=== PATIENT | female | born 1980 | race Caucasian/White ===

== ENCOUNTER 2016-10-12 13:12 | Emergency (ER) | payer MEDICARE | END 2016-10-12 15:50 | disposition home or self-care (01) | LOC: D.ER 13:12 | DX: S93.402A Sprain of unspecified ligament of left ankle, initial encounter (principal); Y93.A1 Activity, exercise machines primarily for cardiorespiratory conditioning; Y93.89 Activity, other specified; Y92.39 Other specified sports and athletic area as the place of occurrence of the external cause; F31.9 Bipolar disorder, unspecified ==

== ENCOUNTER → 2016-10-16 11:49 | Outpatient (CLI) | payer MEDICARE ==
[2016-10-16 12:35] LABS: BASOPHILS 0.3 % (0.0-2.0); EOSINOPHILS 5.7 % (0-7); HEMATOCRIT 37.9 % (36.0-48.0); HEMOGLOBIN 12.4 g/dL (12-16); IMMATURE GRANULOCYTES 0.7 % (0-5); LYMPHOCYTES 23.3 % (15-50); MCH 34.9 pg (26.0-34.0); MCHC 32.7 g/dL (31.0-37.0); MCV 106.8 fL (80.0-100.0); MEAN PLATELET VOLUME 10.7 fL (7.4-10.4); MONOCYTES 5.9 % (2-11); NEUTROPHILS 64.1 % (40-80); PLATELET COUNT 340 10x3/uL (130-400); RBC 3.55 10x6/uL (4.00-5.40); RDW 13.3 % (11.5-14.5); WBC 11.3 10x3/uL (4.8-10.8)
[2016-10-16 12:43] LABS: HCG SERUM NEGATIVE (NEGATIVE)
[2016-10-16 13:01] LABS: ALBUMIN 3.8 g/dL (3.4-5.0); ALKALINE PHOSPHATASE 49 U/L (46-116); ALT (SGPT) 57 U/L (10-68); BILIRUBIN - DIRECT 0.09 mg/dL (0.00-0.30); BILIRUBIN - INDIRECT 0.37 mg/dL (0.00-1.00); BILIRUBIN - TOTAL 0.46 mg/dL (0.2-1.3); CALC OSMOLALITY 277 mosm/kg (275-300); CALCIUM 9.6 mg/dL (8.5-10.1); CARBON DIOXIDE 27.9 mmol/L (21.0-32.0); CHLORIDE - SERUM 105 mmol/L (98-107); CREATININE - SERUM 0.7 mg/dL (0.6-1.3); GLUCOSE 89 mg/dL (74-106); POTASSIUM - SERUM 4.4 mmol/L (3.5-5.1); PROTEIN - SERUM 6.8 g/dL (6.4-8.2); SODIUM 141 mmol/L (136-145); T4 THYROXINE 6.1 ug/dL (4.7-13.3); THYROID STIMULATING HORMONE 3.06 uIU/mL (0.36-3.74); UREA NITROGEN 7 mg/dL (7-18); eGFR NON AFRICAN AMERICAN > 90 mL/min (90-120)
== END | disposition home or self-care (01) ==
LOC: D.LAB 11:49
PROVIDERS: Psychiatry & Neurology Psychiatry
DX: F31.9 Bipolar disorder, unspecified (principal)

== ENCOUNTER 2016-10-17 16:16 | Emergency (ER) | payer MEDICARE | END 2016-10-17 18:30 | disposition home or self-care (01) | LOC: D.ER 16:16 | DX: S93.402A Sprain of unspecified ligament of left ankle, initial encounter (principal); X58.XXXA Exposure to other specified factors, initial encounter; Y93.89 Activity, other specified; Y92.89 Other specified places as the place of occurrence of the external cause; F31.9 Bipolar disorder, unspecified; F17.200 Nicotine dependence, unspecified, uncomplicated ==

== ENCOUNTER → 2016-11-17 12:47 | Outpatient (CLI) | payer MEDICARE | END | disposition home or self-care (01) | LOC: D.LAB 12:47 | DX: F31.71 Bipolar disorder, in partial remission, most recent episode hypomanic (principal) ==

== ENCOUNTER 2017-04-03 13:23 | Emergency (ER) | payer MEDICARE | END 2017-04-03 15:18 | disposition home or self-care (01) | LOC: D.ER 13:23 | DX: K04.7 Periapical abscess without sinus (principal); K08.89 Other specified disorders of teeth and supporting structures; F31.89 Other bipolar disorder; F17.200 Nicotine dependence, unspecified, uncomplicated ==

== ENCOUNTER 2017-05-16 15:16 | Emergency (ER) | payer MEDICARE | END 2017-05-16 16:20 | disposition home or self-care (01) | LOC: D.ER 15:16 | DX: S50.12XA Contusion of left forearm, initial encounter (principal); X58.XXXA Exposure to other specified factors, initial encounter; Y93.89 Activity, other specified; Y92.89 Other specified places as the place of occurrence of the external cause; R20.0 Anesthesia of skin ==

== ENCOUNTER 2017-06-13 16:56 | Emergency (ER) | payer MEDICARE | END 2017-06-13 19:55 | disposition home or self-care (01) | LOC: D.ER 16:56 | DX: K02.9 Dental caries, unspecified (principal); K08.89 Other specified disorders of teeth and supporting structures ==

== ENCOUNTER 2017-06-23 18:36 | Emergency (ER) | payer MEDICARE ==
[2017-06-23 19:01] LABS: BASOPHILS 0.2 % (0-2); EOSINOPHILS 2.3 % (0-7); HEMATOCRIT 38.8 % (36.0-48.0); HEMOGLOBIN 13.3 g/dL (12-16); IMMATURE GRANULOCYTES 0.4 % (0-5); LYMPHOCYTES 28.3 % (15-50); MCHC 34.3 g/dL (31.0-37.0); MCV 102.1 fL (80.0-100.0); MEAN PLATELET VOLUME 10.9 fL (7.4-10.4); MONOCYTES 5.8 % (2-11); PLATELET COUNT 334 10x3/uL (130-400); WBC 15.6 10x3/uL (4.8-10.8)
[2017-06-23 19:24] LABS: HCG SERUM NEGATIVE (NEGATIVE)
[2017-06-23 20:14] LABS: APPEARANCE CLEAR (CLEAR); BILIRUBIN NEGATIVE (NEGATIVE); COLOR YELLOW (YELLOW); GLUCOSE NEGATIVE (NEGATIVE); KETONE NEGATIVE (NEGATIVE); LEUKOCYTE ESTERASE NEGATIVE (NEGATIVE); NITRITE NEGATIVE (NEGATIVE); PROTEIN NEGATIVE (NEGATIVE); UROBILINOGEN NORMAL (NORMAL)
[2017-06-23 21:00] LABS: ALBUMIN 3.6 g/dL (3.4-5.0); ALKALINE PHOSPHATASE 72 U/L (46-116); ALT (SGPT) 59 U/L (10-68); AMYLASE - SERUM 45 U/L (25-115); BILIRUBIN - TOTAL 0.42 mg/dL (0.2-1.3); CALC OSMOLALITY 275 mosm/kg (275-300); CALCIUM 8.9 mg/dL (8.5-10.1); CARBON DIOXIDE 24.1 mmol/L (21.0-32.0); CHLORIDE - SERUM 104 mmol/L (98-107); CREATININE - SERUM 0.8 mg/dL (0.6-1.3); GLUCOSE 94 mg/dL (74-106); LIPASE 197 U/L (73-393); MAGNESIUM - SERUM 2.2 mg/dL (1.8-2.4); POTASSIUM - SERUM 3.6 mmol/L (3.5-5.1); PROTEIN - SERUM 6.9 g/dL (6.4-8.2); SODIUM 139 mmol/L (136-145); UREA NITROGEN 8 mg/dL (7-18); eGFR NON AFRICAN AMERICAN 85 mL/min (90-120)
== END 2017-06-23 21:25 | disposition home or self-care (01) ==
LOC: D.ER 18:36
PROVIDERS: Emergency Medicine
DX: R10.11 Right upper quadrant pain (principal); F17.200 Nicotine dependence, unspecified, uncomplicated

== ENCOUNTER 2017-07-11 11:17 | Emergency (ER) | payer MEDICARE ==
[2017-11-14 12:23] VITALS: BMI 36.9
== END 2017-07-11 13:41 | disposition home or self-care (01) ==
LOC: D.ER 11:17
DX: J20.9 Acute bronchitis, unspecified (principal)

== ENCOUNTER 2017-09-27 14:37 | Emergency (ER) | payer MEDICARE ==
[2017-11-14 12:23] VITALS: BMI 36.9
== END 2017-09-27 16:13 | disposition home or self-care (01) ==
LOC: D.ER 14:37
DX: J20.9 Acute bronchitis, unspecified (principal); F17.200 Nicotine dependence, unspecified, uncomplicated

== ENCOUNTER 2017-11-02 17:51 | Emergency (ER) | payer MEDICARE ==
[2017-11-02 18:29] LABS: APPEARANCE CLEAR (CLEAR); BILIRUBIN NEGATIVE (NEGATIVE); COLOR YELLOW (YELLOW); GLUCOSE NEGATIVE (NEGATIVE); KETONE NEGATIVE (NEGATIVE); NITRITE NEGATIVE (NEGATIVE); PROTEIN NEGATIVE (NEGATIVE); UROBILINOGEN NORMAL (NORMAL)
[2017-11-02 18:44] LABS: BASOPHILS 0.1 % (0-2); EOSINOPHILS 1.4 % (0-7); HEMOGLOBIN 12.4 g/dL (12-16); IMMATURE GRANULOCYTES 0.3 % (0-5); LYMPHOCYTES 24.9 % (15-50); MCH 35.6 pg (26.0-34.0); MCHC 33.5 g/dL (31.0-37.0); MCV 106.3 fL (80.0-100.0); MEAN PLATELET VOLUME 10.9 fL (7.4-10.4); MONOCYTES 6.5 % (2-11); NEUTROPHILS 66.8 % (40-80); PLATELET COUNT 295 10x3/uL (130-400); RBC 3.48 10x6/uL (4.00-5.40); RDW 14.2 % (11.5-14.5); WBC 14.7 10x3/uL (4.8-10.8)
[2017-11-02 19:05] LABS: ALBUMIN 3.4 g/dL (3.4-5.0); ANION GAP 13.4 mmol/L (8-16); BILIRUBIN - TOTAL 0.2 mg/dL (0.2-1.3); CARBON DIOXIDE 24.2 mmol/L (21.0-32.0); CREATININE - SERUM 0.9 mg/dL (0.6-1.3); POTASSIUM - SERUM 3.6 mmol/L (3.5-5.1); PROTEIN - SERUM 6.6 g/dL (6.4-8.2)
== END 2017-11-02 20:45 | disposition left against medical advice (07) ==
LOC: D.ER 17:51
PROVIDERS: Emergency Medicine
DX: R10.84 Generalized abdominal pain (principal)

== ENCOUNTER 2017-11-05 07:21 | Emergency (ER) | payer MEDICARE | END 2017-11-05 09:00 | disposition home or self-care (01) | LOC: D.ER 07:21 | DX: H92.02 Otalgia, left ear (principal); H66.92 Otitis media, unspecified, left ear ==

== ENCOUNTER 2017-11-07 10:48 | Emergency (ER) | payer MEDICARE ==
[2017-11-07 11:43] LABS: BASOPHILS 0.2 % (0-2); EOSINOPHILS 0.9 % (0-7); HEMATOCRIT 36.4 % (36.0-48.0); IMMATURE GRANULOCYTES 0.9 % (0-5); LYMPHOCYTES 14.8 % (15-50); MCH 35.3 pg (26.0-34.0); MCV 107.1 fL (80.0-100.0); MEAN PLATELET VOLUME 11.1 fL (7.4-10.4); MONOCYTES 11.1 % (2-11); NEUTROPHILS 72.1 % (40-80); PLATELET COUNT 273 10x3/uL (130-400); RDW 14.4 % (11.5-14.5); WBC 12.6 10x3/uL (4.8-10.8)
[2017-11-07 11:58] LABS: ANION GAP 16.4 mmol/L (8-16); BILIRUBIN - TOTAL 0.15 mg/dL (0.2-1.3); CALCIUM 8.4 mg/dL (8.5-10.1); CARBON DIOXIDE 21.4 mmol/L (21.0-32.0); PROTEIN - SERUM 6.2 g/dL (6.4-8.2)
[2017-11-07 12:07] LABS: POTASSIUM - SERUM 2.8 mmol/L (3.5-5.1)
== END 2017-11-07 12:40 | disposition home or self-care (01) ==
LOC: D.ER 10:48
PROVIDERS: Emergency Medicine
DX: J11.1 Influenza due to unidentified influenza virus with other respiratory manifestations (principal); F17.200 Nicotine dependence, unspecified, uncomplicated

== ENCOUNTER 2017-11-09 11:13 | Emergency (ER) | payer MEDICARE | END 2017-11-09 13:16 | disposition home or self-care (01) | LOC: D.ER 11:13 | DX: J45.901 Unspecified asthma with (acute) exacerbation (principal); J11.1 Influenza due to unidentified influenza virus with other respiratory manifestations; F17.200 Nicotine dependence, unspecified, uncomplicated ==

== ENCOUNTER 2017-11-14 07:39 | Inpatient (IN) | payer MEDICARE ==
[~2017-11-14] VITALS: Ht 154.9 cm; Wt 118.2 kg
--- NOTE | ~2017-11-14 | CN ---
PATIENT NAME:RUBEN MARINA MEDICAL RECORD: [id number] : 78 LOCATION:D.MS [address] ADMIT DATE: 11/14/17 ACCOUNT: [id number] CONSULTING PHYSICIAN: JORDYN ACUÑA MD REFERRING PHYSICIAN: CAROLINE SINGER MD DATE OF CONSULTATION: 11/14/2017 CONSULT REQUESTING PHYSICIAN: Caroline Singer MD REASON FOR CONSULTATION: Acute exacerbation of COPD, hypoxia. HISTORY OF PRESENT ILLNESS: Ms. Marina is a 37-year-old female who had flu more 10 days ago. She was treated with Tamiflu. The patient claimed that she had flu twice this year. Now, she has coughing, wheezing, and shortness of breath with mild exertion. The patient came into the ER. The CT scan showed pneumonitis. REVIEW OF THE SYSTEMS: Mainly in the history of present illness. PAST MEDICAL HISTORY: 1. Pneumonia. 2. Gastroesophageal reflux disease. 3. Anxiety and bipolar disorder. PAST SURGICAL HISTORY: Hand and ankle surgery. ALLERGIES: SHE IS ALLERGIC TO PENICILLIN AND CHANTIX. PRESENT MEDICATIONS: She is on Rocephin IV, Zithromax IV. Her other medications are reviewed. PERSONAL AND SOCIAL HISTORY: The patient is still a current everyday smoker. She is nondrinker. FAMILY HISTORY: Significant for diabetes. PHYSICAL EXAMINATION: GENERAL: Now, the patient is lying comfortably in bed. She is not in acute distress. VITAL SIGNS: The blood pressure is 120/72, pulse is 119, temperature is 97.9, SpO2 is 95% on 2 liters nasal cannula. HEENT: Conjunctivae are pink. Sclerae not icteric. NECK: Supple. No JVD. CHEST: There is prolonged expiration with wheezing. HEART: Rhythm regular. Normal sound. No murmur. ABDOMEN: Soft. Bowel sounds present. No hepatosplenomegaly. RECTAL: Deferred. EXTREMITIES: No cyanosis. No clubbing. No pedal edema. SKIN: The skin is warm. Normal turgor. CENTRAL NERVOUS SYSTEM: The patient is awake and alert. There are no obvious cranial nerve abnormalities. The gait was not tested. IMAGING: CT scan of the chest; there is increased interstitial marking. No PE. CBC; the WBC is 15.2, hemoglobin 12.8, hematocrit 38.8, platelet count 362. CONSULT REPORT [id number] RUBEN MARINA D Chemistry; sodium 140, potassium 3.4, BUN is 16, creatinine 0.8. ABG; the pH is 7.45, pCO2 is 39.8, pO2 is 71, bicarb is 27.6. IMPRESSION: 1. Acute hypoxic respiratory failure. The pO2 is 71 on ABG. 2. Acute exacerbation of COPD. 3. Bilateral pneumonitis. 4. Tobacco dependence syndrome. 5. Leukocytosis. 6. Acute cough. 7. Dyspnea on exertion. 8. Gastroesophageal reflux disease. RECOMMENDATION: 1. Supplemental oxygen. 2. Albuterol/ipratropium nebulizer, Brovana and budesonide nebulizer. 3. Methylprednisolone IV. 4. Check alpha-1 level. 5. Continue Zithromax and Rocephin IV. 6. Mucinex DM and Tessalon Perles 200 mg p.o. t.i.d. 7. Follow labs and chest radiograph in the morning. Dr. Singer, thank you for involving me in the care of Ms. Marina. TRANSINT:[id number] Voice Confirmation ID: [id number] DOCUMENT ID: [id number] JORDYN ACUÑA MD CC: CAROLINE SINGER MD [id number] DICTATION DATE: 11/14/17 1525 PLASTERER SPOT: 11/14/17 1751 ADM IN [facility] [address] [place] [address]
[2017-11-14 08:24] LABS: BASOPHILS 0.2 % (0-2); EOSINOPHILS 0.5 % (0-7); HEMATOCRIT 38.8 % (36.0-48.0); HEMOGLOBIN 12.8 g/dL (12-16); LYMPHOCYTES 32.9 % (15-50); MCH 35.5 pg (26.0-34.0); MCV 107.5 fL (80.0-100.0); MEAN PLATELET VOLUME 10.1 fL (7.4-10.4); MONOCYTES 6.4 % (2-11); RBC 3.61 10x6/uL (4.00-5.40); RDW 15.6 % (11.5-14.5); WBC 15.2 10x3/uL (4.8-10.8)
[2017-11-14 08:27] LABS: PLATELET COUNT 362 10x3/uL (130-400)
[2017-11-14 08:42] LABS: ALBUMIN 3.4 g/dL (3.4-5.0); ALKALINE PHOSPHATASE 57 U/L (46-116); ALT (SGPT) 80 U/L (10-68); CALC OSMOLALITY 278 mosm/kg (275-300); CALCIUM 8.6 mg/dL (8.5-10.1); CARBON DIOXIDE 26.7 mmol/L (21.0-32.0); CHLORIDE - SERUM 103 mmol/L (98-107); CREATININE - SERUM 0.8 mg/dL (0.6-1.3); GLUCOSE 82 mg/dL (74-106); POTASSIUM - SERUM 3.4 mmol/L (3.5-5.1); PROTEIN - SERUM 6.6 g/dL (6.4-8.2); SODIUM 140 mmol/L (136-145); UREA NITROGEN 16 mg/dL (7-18); eGFR NON AFRICAN AMERICAN 85 mL/min (90-120)
[2017-11-14 08:43] LABS: MONO NEGATIVE (NEGATIVE)
[2017-11-14] MEDS ORDERED: KLONOPIN1 MG PO (12:20)
[2017-11-14] MEDS ORDERED: LUNESTA2 M1 PO (12:21)
[2017-11-14] MEDS ORDERED: PROZAC20 MG PO (12:21)
[2017-11-14] MEDS ORDERED: LATUDA40 MG PO (12:21)
[2017-11-14 12:23] VITALS: BP 120/72; Ht 154.9 cm; Wt 118.2 kg
[2017-11-14 16:00] VITALS: BP 115/74
[2017-11-14 20:00] VITALS: BP 128/81
[2017-11-15] VITALS: BP 155/86
[2017-11-15 04:00] VITALS: BP 140/86
[2017-11-15 05:17] LABS: BASOPHILS 0.1 % (0-2); EOSINOPHILS 0 % (0-7); HEMATOCRIT 37.6 % (36.0-48.0); HEMOGLOBIN 12.1 g/dL (12-16); IMMATURE GRANULOCYTES 4.3 % (0-5); LYMPHOCYTES 8.4 % (15-50); MCH 34.8 pg (26.0-34.0); MCHC 32.2 g/dL (31.0-37.0); MEAN PLATELET VOLUME 10.4 fL (7.4-10.4); MONOCYTES 1.6 % (2-11); NEUTROPHILS 85.6 % (40-80); PLATELET COUNT 374 10x3/uL (130-400); RBC 3.48 10x6/uL (4.00-5.40); RDW 15.4 % (11.5-14.5)
[2017-11-15 05:28] LABS: WBC 19.1 10x3/uL (4.8-10.8)
[2017-11-15 05:37] LABS: ALBUMIN 3.3 g/dL (3.4-5.0); ANION GAP 12.2 mmol/L (8-16); BILIRUBIN - TOTAL 0.2 mg/dL (0.2-1.3); CALCIUM 8.6 mg/dL (8.5-10.1); CARBON DIOXIDE 27.1 mmol/L (21.0-32.0); CREATININE - SERUM 0.9 mg/dL (0.6-1.3); PROTEIN - SERUM 6.8 g/dL (6.4-8.2)
[2017-11-15 05:40] LABS: POTASSIUM - SERUM 4.3 mmol/L (3.5-5.1)
[2017-11-15 09:14] VITALS: BP 128/67
[2017-11-15 12:55] VITALS: BP 130/72
[2017-11-15 16:59] VITALS: BP 130/74
[2017-11-15 22:08] VITALS: BP 124/77
[2017-11-16 04:55] VITALS: BP 130/85
[2017-11-16 06:15] LABS: ALBUMIN 3.2 g/dL (3.4-5.0); ALKALINE PHOSPHATASE 60 U/L (46-116); ALT (SGPT) 76 U/L (10-68); CALC OSMOLALITY 280 mosm/kg (275-300); CALCIUM 8.4 mg/dL (8.5-10.1); CARBON DIOXIDE 26.8 mmol/L (21.0-32.0); CHLORIDE - SERUM 103 mmol/L (98-107); CREATININE - SERUM 0.7 mg/dL (0.6-1.3); GLUCOSE 154 mg/dL (74-106); PROTEIN - SERUM 6.8 g/dL (6.4-8.2); SODIUM 139 mmol/L (136-145); UREA NITROGEN 12 mg/dL (7-18); eGFR NON AFRICAN AMERICAN > 90 mL/min (90-120)
[2017-11-16 06:20] LABS: HEMATOCRIT 38.2 % (36.0-48.0); HEMOGLOBIN 12.2 g/dL (12-16); MCH 35.2 pg (26.0-34.0); MCHC 31.9 g/dL (31.0-37.0); MCV 110.1 fL (80.0-100.0); MEAN PLATELET VOLUME 10.7 fL (7.4-10.4); PLATELET COUNT 386 10x3/uL (130-400); RBC 3.47 10x6/uL (4.00-5.40); RDW 15.9 % (11.5-14.5); WBC 20.2 10x3/uL (4.8-10.8)
[2017-11-16 07:26] LABS: LYMPHOCYTES 10 % (15-50); MONOCYTES 5 % (2-11); NEUTROPHILS 82 % (40-80); PLATELET ESTIMATE NORMAL
[2017-11-16 07:27] LABS: ANISOCYTOSIS OCC
[2017-11-16 08:34] VITALS: BP 123/83
[2017-11-16 12:29] VITALS: BP 130/87
[2017-11-16] MEDS ORDERED: OMNICEF300 MG PO (15:15)
[2017-11-16] MEDS ORDERED: ZITHROMAX250 MG PO (15:15)
[2017-11-16] MEDS ORDERED: NICODERM C1 PATCH .1 TRANSDERM (15:16)
[2017-11-16] MEDS ORDERED: IPRAT-ALBUT 0.5-3 ML UPD (15:17)
[2017-11-16] MEDS ORDERED: PROVENTIL HFA6.7 GM INH (15:18)
[2017-11-16 15:52] VITALS: BP 129/90
[2017-11-16 19:11] LABS: EBV - EARLY ANTIGEN AB IGG 18.1 U/mL (0.0-8.9); EBV - NUCLEAR ANTIGEN AB IGG <18.0 U/mL (0.0-17.9); EBV VIRAL CAPSID AB IGM <36.0 U/mL (0.0-35.9)
== END 2017-11-16 17:42 | disposition home or self-care (01) | DRG 193 ==
LOC: D.ER 07:39 → D.MS 11:16
PROVIDERS: Emergency Medicine; Family Medicine
DX: J18.9 Pneumonia, unspecified organism (principal); J96.01 Acute respiratory failure with hypoxia; J44.0 Chronic obstructive pulmonary disease with (acute) lower respiratory infection; J44.1 Chronic obstructive pulmonary disease with (acute) exacerbation; F17.203 Nicotine dependence unspecified, with withdrawal; K21.9 Gastro-esophageal reflux disease without esophagitis; F31.9 Bipolar disorder, unspecified; F41.9 Anxiety disorder, unspecified; E87.6 Hypokalemia; G89.29 Other chronic pain; R60.9 Edema, unspecified

== ENCOUNTER 2017-11-20 11:29 | Emergency (ER) | payer MEDICARE ==
[2017-11-14 12:23] VITALS: BMI 36.9
[~2017-11-20 11:29] MED LIST: IPRAT-ALBUT 0.5-3 ML UPD; KLONOPIN1 MG PO; LATUDA40 MG PO; LUNESTA2 M1 PO; NICODERM C1 PATCH .1 TRANSDERM; OMNICEF300 MG PO; PROVENTIL HFA6.7 GM INH; PROZAC20 MG PO; ZITHROMAX250 MG PO
[2017-11-20 13:01] LABS: BASOPHILS 0.1 % (0-2); HEMATOCRIT 43.8 % (36.0-48.0); HEMOGLOBIN 14.7 g/dL (12-16); IMMATURE GRANULOCYTES 1.6 % (0-5); LYMPHOCYTES 23.8 % (15-50); MCH 35.8 pg (26.0-34.0); MCHC 33.6 g/dL (31.0-37.0); MCV 106.6 fL (80.0-100.0); MONOCYTES 7.6 % (2-11); NEUTROPHILS 65.9 % (40-80); PLATELET COUNT 403 10x3/uL (130-400); RBC 4.11 10x6/uL (4.00-5.40); RDW 15.4 % (11.5-14.5); WBC 15.3 10x3/uL (4.8-10.8)
[2017-11-20 13:07] LABS: ALBUMIN 3.6 g/dL (3.4-5.0); ANION GAP 15.7 mmol/L (8-16); BILIRUBIN - TOTAL 0.32 mg/dL (0.2-1.3); CARBON DIOXIDE 25.6 mmol/L (21.0-32.0); CREATININE - SERUM 0.9 mg/dL (0.6-1.3); POTASSIUM - SERUM 4.3 mmol/L (3.5-5.1); PROTEIN - SERUM 7.5 g/dL (6.4-8.2)
== END 2017-11-20 14:32 | disposition home or self-care (01) ==
LOC: D.ER 11:29
PROVIDERS: Emergency Medicine
DX: R06.00 Dyspnea, unspecified (principal); M94.0 Chondrocostal junction syndrome [Tietze]; F17.200 Nicotine dependence, unspecified, uncomplicated; R00.0 Tachycardia, unspecified

== ENCOUNTER 2017-11-26 19:39 | Emergency (ER) | payer MEDICARE ==
[2017-11-14 12:23] VITALS: BMI 36.9
[2017-11-26 21:57] LABS: ALBUMIN 3.6 g/dL (3.4-5.0); ANION GAP 12.9 mmol/L (8-16); BILIRUBIN - TOTAL 0.29 mg/dL (0.2-1.3); CALCIUM 9.3 mg/dL (8.5-10.1); CARBON DIOXIDE 25.4 mmol/L (21.0-32.0); CREATININE - SERUM 0.9 mg/dL (0.6-1.3); POTASSIUM - SERUM 3.3 mmol/L (3.5-5.1); PROTEIN - SERUM 7.2 g/dL (6.4-8.2)
[2017-11-26 22:02] LABS: BASOPHILS 0.3 % (0-2); EOSINOPHILS 2.3 % (0-7); HEMATOCRIT 40.3 % (36.0-48.0); HEMOGLOBIN 13.5 g/dL (12-16); IMMATURE GRANULOCYTES 0.3 % (0-5); LYMPHOCYTES 36.2 % (15-50); MCH 35.2 pg (26.0-34.0); MCHC 33.5 g/dL (31.0-37.0); MCV 105.2 fL (80.0-100.0); MEAN PLATELET VOLUME 11.1 fL (7.4-10.4); MONOCYTES 9.7 % (2-11); NEUTROPHILS 51.2 % (40-80); RBC 3.83 10x6/uL (4.00-5.40); RDW 14.6 % (11.5-14.5); WBC 10.4 10x3/uL (4.8-10.8)
[2017-11-26 22:05] LABS: PLATELET COUNT 307 10x3/uL (130-400)
== END 2017-11-27 00:30 | disposition home or self-care (01) ==
LOC: D.ER 19:39
PROVIDERS: Emergency Medicine
DX: E65 Localized adiposity (principal)

== ENCOUNTER 2017-12-05 07:49 | Observation (INO) | payer MEDICARE ==
[~2017-12-05] VITALS: Ht 154.9 cm; Wt 81.8 kg
--- NOTE | ~2017-12-05 | HP ---
PATIENT: RUBEN WHITLOCK MEDICAL RECORD: [id number] ACCOUNT: [id number] LOCATION:[address] : 79 ADMISSION DATE: 12/05/17 HISTORY AND PHYSICAL EXAMINATION HISTORY: A 37-year-old female presented to the Emergency Room with shortness of breath, diffuse pain. No known injury. PAST MEDICAL HISTORY: Significant for recurrent asthmatic bronchitis, anxiety disorder, bipolar disorder, costochondritis, depression. CURRENT MEDICATIONS: Latuda, Lunesta, Klonopin, Prozac. ALLERGIES: CHANTIX, PENICILLIN, MOBIC. SOCIAL HISTORY: Former smoker, presently on nicotine patches. Hospitalization in November for similar symptoms, diagnosed with exacerbation of asthma. Will, flu in November, has not gotten back to her baseline since. REVIEW OF SYSTEM: CONSTITUTIONAL: No known change in weight or appetite. HEENT: No cephalgia, visual changes, tinnitus, epistaxis, or dysphagia. CARDIOVASCULAR: Denies palpitations. She has sternal pain and tenderness, diffuse pain syndrome. PULMONARY: Denies hemoptysis. Admits to cough, wheeze, and shortness of breath. GI: Denies hematemesis, hematochezia, or melena. : Denies dysuria. MUSCULOSKELETAL: Polymyalgia, polyarthralgia. ENDOCRINE: Cushingoid features, has endocrinology evaluation scheduled later this month. PHYSICAL EXAMINATION: VITAL SIGNS: Temp 97.5, blood pressure is 152/98, heart rate 111, respirations 20, O2 sat is 98% on room air. GENERAL: Alert, oriented, mild distress secondary to above. HEENT: Normocephalic, atraumatic. Eyes; pupils are equal, round, and reactive to light and accommodation. Extraocular muscles intact. Conjunctivae are not injected. Ears; canals patent. TMs are intact. Nose; nares patent without drainage. Throat; no erythema, no exudate. NECK: Supple. No lymphadenopathy. HEART: Regular, tachycardic. LUNGS: Clear to auscultation bilaterally. Breathing is nonlabored. Mildly prolonged expiratory phase. ABDOMEN: Soft, nontender. Bowel sounds in all 4 quadrants. EXTREMITIES: Present times 4. No edema. She does have cushingoid-type hump on thoracic spine. EKG showed sinus tachycardia with rate of 106. No other abnormalities. Lactic acid 0.8. CBC; white count 10.5, hemoglobin 13.5, hematocrit 40, platelets 357. Chemistry shows sodium 138, potassium 3.9, chloride 105, bicarb 22, BUN 3, creatinine 0.6. T-bili 0.33, AST 26, ALT 42. Blood cultures pending. Chest x-ray; bibasilar interstitial prominence, right greater than left. Underlying evolving infiltrate cannot be excluded. HISTORY AND PHYSICAL [id number] RUBEN WHITLOCK ASSESSMENT AND PLAN: 1. Polymyalgia, polyarthralgia. Pain management. 2. Possible early pneumonia with the patient's recurrent symptoms. Afebrile. Normal white count. We will consult pulmonology. DuoNeb. Supportive care. 3. Cushingoid features. Outpatient evaluation with endocrinology. 4. Bipolar disorder, anxiety disorder. Continue home medications. TRANSINT:[id number] Voice Confirmation ID: [id number] DOCUMENT ID: [id number] DARION MCCARTY DO at 1055 CC: [id number] DICTATION DATE: 12/05/17 1522 GEOPHYSICAL MANAGER: 12/05/17 1615 ADM IN [facility] [address] [place] [address]
[2017-12-05 08:52] LABS: BASOPHILS 0.2 % (0-2); EOSINOPHILS 1.9 % (0-7); HEMOGLOBIN 13.5 g/dL (12-16); IMMATURE GRANULOCYTES 0.4 % (0-5); LYMPHOCYTES 29.9 % (15-50); MCH 35.2 pg (26.0-34.0); MCHC 33.8 g/dL (31.0-37.0); MCV 104.4 fL (80.0-100.0); MEAN PLATELET VOLUME 10.5 fL (7.4-10.4); MONOCYTES 8.4 % (2-11); NEUTROPHILS 59.2 % (40-80); PLATELET COUNT 357 10x3/uL (130-400); RBC 3.83 10x6/uL (4.00-5.40); RDW 14.4 % (11.5-14.5); WBC 10.5 10x3/uL (4.8-10.8)
[2017-12-05 09:06] LABS: ALBUMIN 3.5 g/dL (3.4-5.0); ALKALINE PHOSPHATASE 62 U/L (46-116); ALT (SGPT) 42 U/L (10-68); BILIRUBIN - TOTAL 0.33 mg/dL (0.2-1.3); CALC OSMOLALITY 271 mosm/kg (275-300); CALCIUM 9.2 mg/dL (8.5-10.1); CHLORIDE - SERUM 105 mmol/L (98-107); CREATININE - SERUM 0.6 mg/dL (0.6-1.3); GLUCOSE 88 mg/dL (74-106); POTASSIUM - SERUM 3.9 mmol/L (3.5-5.1); PROTEIN - SERUM 7.5 g/dL (6.4-8.2); SODIUM 138 mmol/L (136-145); UREA NITROGEN 3 mg/dL (7-18); eGFR NON AFRICAN AMERICAN > 90 mL/min (90-120)
[2017-12-05] MEDS ORDERED: SYMBICORT 16010.2 GM INH (14:51)
[2017-12-05] MEDS ORDERED: BENZONATATE200 MG PO (14:51)
[2017-12-05] MEDS ORDERED: SINGULAIR10 MG PO (14:51)
[2017-12-05] MEDS ORDERED: TUSSIONEX PENN473 ML PO (14:52)
[2017-12-05] MEDS ORDERED: PRAVACHOL20 MG PO (14:52)
[2017-12-05] MEDS ORDERED: PERCOCET 5-3251 TAB PO (14:53)
[2017-12-05 14:54] VITALS: BP 136/86; BMI 34.0
[2017-12-06 05:58] LABS: BASOPHILS 0.3 % (0-2); EOSINOPHILS 2.6 % (0-7); HEMATOCRIT 39.3 % (36.0-48.0); HEMOGLOBIN 12.9 g/dL (12-16); IMMATURE GRANULOCYTES 0.2 % (0-5); LYMPHOCYTES 36.9 % (15-50); MCH 34.1 pg (26.0-34.0); MCHC 32.8 g/dL (31.0-37.0); MEAN PLATELET VOLUME 10.7 fL (7.4-10.4); MONOCYTES 9.6 % (2-11); NEUTROPHILS 50.4 % (40-80); PLATELET COUNT 386 10x3/uL (130-400); RBC 3.78 10x6/uL (4.00-5.40); RDW 14.3 % (11.5-14.5); WBC 9.6 10x3/uL (4.8-10.8)
[2017-12-06 06:32] LABS: ALBUMIN 3.3 g/dL (3.4-5.0); ALKALINE PHOSPHATASE 56 U/L (46-116); ALT (SGPT) 40 U/L (10-68); C-REACTIVE PROTEIN 1.4 mg/dL (0.0-0.9); CALC OSMOLALITY 272 mosm/kg (275-300); CALCIUM 8.5 mg/dL (8.5-10.1); CARBON DIOXIDE 22.9 mmol/L (21.0-32.0); CHLORIDE - SERUM 104 mmol/L (98-107); CREATINE KINASE 85 UL (21-215); CREATININE - SERUM 0.7 mg/dL (0.6-1.3); GLUCOSE 78 mg/dL (74-106); POTASSIUM - SERUM 3.5 mmol/L (3.5-5.1); PRO BNP 17 pg/mL (0-125); PROTEIN - SERUM 6.8 g/dL (6.4-8.2); SODIUM 138 mmol/L (136-145); eGFR NON AFRICAN AMERICAN > 90 mL/min (90-120)
[2017-12-06 06:34] LABS: UREA NITROGEN 7 mg/dL (7-18)
[2017-12-06 07:14] LABS: ERYTHROCYTE SEDIMENTATION RATE 24 mm/hr (0-20)
[2017-12-06 07:35] VITALS: BP 131/79
[2017-12-06 11:00] VITALS: BP 118/70
[2017-12-06 12:00] VITALS: BP 144/78
[2017-12-06] MEDS ORDERED: PROVENTIL/2.5 MG/3 M INH (17:39)
[2017-12-06 22:33] VITALS: Ht 154.9 cm; Wt 81.8 kg
== END 2017-12-06 18:38 | disposition home or self-care (01) ==
LOC: D.ER 07:49 → D.EDHOLD 09:45 → OBSVTIME 09:45 → D.M2 09:45
PROVIDERS: Family Medicine; Internal Medicine Pulmonary Disease
DX: J84.114 Acute interstitial pneumonitis (principal); J44.1 Chronic obstructive pulmonary disease with (acute) exacerbation; J44.0 Chronic obstructive pulmonary disease with (acute) lower respiratory infection; E24.2 Drug-induced Cushing's syndrome; M35.3 Polymyalgia rheumatica; F31.9 Bipolar disorder, unspecified; F41.9 Anxiety disorder, unspecified; J45.909 Unspecified asthma, uncomplicated; Z87.891 Personal history of nicotine dependence; E66.9 Obesity, unspecified; Z68.34 Body mass index [BMI] 34.0-34.9, adult

== ENCOUNTER 2018-02-03 15:01 | Emergency (ER) | payer MEDICARE ==
[2017-12-06 22:33] VITALS: BMI 34.0
[~2018-02-03 15:01] MED LIST changes: +BENZONATATE200 MG PO; +PERCOCET 5-3251 TAB PO; +PRAVACHOL20 MG PO; +PROVENTIL/2.5 MG/3 M INH; +SINGULAIR10 MG PO; +SYMBICORT 16010.2 GM INH; +TUSSIONEX PENN473 ML PO
== END 2018-02-03 16:16 | disposition home or self-care (01) ==
LOC: D.ER 15:01
DX: K08.89 Other specified disorders of teeth and supporting structures (principal); K05.10 Chronic gingivitis, plaque induced

== ENCOUNTER 2018-03-06 16:40 | Emergency (ER) | payer MEDICARE ==
[2017-12-06 22:33] VITALS: BMI 34.0
== END 2018-03-06 17:39 | disposition home or self-care (01) ==
LOC: D.ER 16:40
DX: S99.912A Unspecified injury of left ankle, initial encounter (principal); X50.1XXA Overexertion from prolonged static or awkward postures, initial encounter; Y93.89 Activity, other specified; Y92.019 Unspecified place in single-family (private) house as the place of occurrence of the external cause

== ENCOUNTER 2018-03-13 04:25 | Emergency (ER) | payer MEDICARE ==
[~2018-03-13] VITALS: Ht 154.9 cm; Wt 90.9 kg
[2018-03-13 04:29] VITALS: Ht 154.9 cm; Wt 90.9 kg
[2018-03-13] MEDS ORDERED: DOXYCYCLINE HY100 M2 PO (04:31)
[2018-03-13] MEDS ORDERED: ULTRAM50 MG PO (05:18)
[2018-03-13 06:46] VITALS: BP 138/74
== END 2018-03-13 07:33 | disposition home or self-care (01) ==
LOC: D.ER 04:25
DX: S93.402A Sprain of unspecified ligament of left ankle, initial encounter (principal); X50.1XXA Overexertion from prolonged static or awkward postures, initial encounter; Y93.89 Activity, other specified; Y92.013 Bedroom of single-family (private) house as the place of occurrence of the external cause; E24.9 Cushing's syndrome, unspecified

== ENCOUNTER → 2018-03-22 13:44 | Outpatient (CLI) | payer MEDICARE ==
[2018-03-13 04:29] VITALS: BMI 37.8
[~2018-03-22 13:44] MED LIST changes: +DOXYCYCLINE HY100 M2 PO; +MUCINEX D1 TAB.SR . PO; +NAPROSYN500 MG PO; +NEURONTIN 300300 MG PO; +ULTRAM50 MG PO
== END | disposition home or self-care (01) ==
LOC: D.CT 03-17 14:30
DX: M25.572 Pain in left ankle and joints of left foot (principal)

== ENCOUNTER 2018-04-10 20:51 | Emergency (ER) | payer MEDICARE ==
[~2018-04-10] VITALS: Ht 154.9 cm; Wt 89.5 kg
[~2018-04-10 20:51] MED LIST changes: -MUCINEX D1 TAB.SR . PO; -NAPROSYN500 MG PO; -NEURONTIN 300300 MG PO; -PRAVACHOL20 MG PO; +PRAVASTATIN SOD10 MG PO
[2018-04-10 20:57] VITALS: Ht 154.9 cm; Wt 89.5 kg
[2018-04-10 23:00] VITALS: BP 107/79
[2018-06-21] MEDS ORDERED: ZOVIRAX400 MG PO (08:56)
== END 2018-04-10 23:28 | disposition home or self-care (01) ==
LOC: D.ER 20:51
DX: H83.2X9 Labyrinthine dysfunction, unspecified ear (principal); J44.9 Chronic obstructive pulmonary disease, unspecified; R09.89 Other specified symptoms and signs involving the circulatory and respiratory systems

== ENCOUNTER 2018-05-09 15:40 | Emergency (ER) | payer MEDICARE ==
[2018-05-09 16:02] VITALS: Ht 154.9 cm
[2018-05-09] MEDS ORDERED: NEURONTIN 300300 MG PO (16:07)
[2018-05-09 16:29] LABS: APPEARANCE CLEAR (CLEAR); BILIRUBIN NEGATIVE (NEGATIVE); COLOR YELLOW (YELLOW); GLUCOSE NEGATIVE (NEGATIVE); KETONE NEGATIVE (NEGATIVE); NITRITE NEGATIVE (NEGATIVE); PROTEIN NEGATIVE (NEGATIVE); SPECIFIC GRAVITY 1.005 (1.005-1.020); UROBILINOGEN NORMAL (NORMAL)
[2018-05-09 16:43] LABS: BASOPHILS 0.2 % (0-2); EOSINOPHILS 4.4 % (0-7); HEMATOCRIT 40.2 % (36.0-48.0); HEMOGLOBIN 14.1 g/dL (12-16); IMMATURE GRANULOCYTES 0.2 % (0-5); LYMPHOCYTES 31.9 % (15-50); MCH 34.6 pg (26.0-34.0); MCHC 35.1 g/dL (31.0-37.0); MCV 98.5 fL (80.0-100.0); MEAN PLATELET VOLUME 11.4 fL (7.4-10.4); MONOCYTES 7.9 % (2-11); NEUTROPHILS 55.4 % (40-80); PLATELET COUNT 359 10x3/uL (130-400); RBC 4.08 10x6/uL (4.00-5.40); RDW 13.7 % (11.5-14.5); WBC 12.1 10x3/uL (4.8-10.8)
[2018-05-09 17:01] LABS: ALBUMIN 3.5 g/dL (3.4-5.0); ALKALINE PHOSPHATASE 66 U/L (46-116); ALT (SGPT) 40 U/L (10-68); CALC OSMOLALITY 273 mosm/kg (275-300); CALCIUM 9.6 mg/dL (8.5-10.1); CARBON DIOXIDE 22.9 mmol/L (21.0-32.0); CHLORIDE - SERUM 102 mmol/L (98-107); CREATININE - SERUM 0.8 mg/dL (0.6-1.3); GLUCOSE 107 mg/dL (74-106); POTASSIUM - SERUM 3.3 mmol/L (3.5-5.1); PROTEIN - SERUM 7.2 g/dL (6.4-8.2); SODIUM 138 mmol/L (136-145); UREA NITROGEN 6 mg/dL (7-18); eGFR NON AFRICAN AMERICAN 85 mL/min (90-120)
[2018-05-09 19:57] VITALS: BP 98/50
[2018-05-09] MEDS ORDERED: NAPROSYN500 MG PO (20:09)
[2018-05-09] MEDS ORDERED: MUCINEX D1 TAB.SR . PO (20:09)
[2018-06-21] MEDS ORDERED: ZOVIRAX400 MG PO (08:56)
== END 2018-05-09 20:27 | disposition home or self-care (01) ==
LOC: D.ER 15:40
PROVIDERS: Family Medicine
DX: B34.9 Viral infection, unspecified (principal); J44.9 Chronic obstructive pulmonary disease, unspecified; M54.5 Low back pain

== ENCOUNTER 2018-06-08 12:15 | Emergency (ER) | payer MEDICARE ==
[~2018-06-08] VITALS: Ht 154.9 cm; Wt 104.5 kg
[~2018-06-08 12:15] MED LIST changes: +MUCINEX D1 TAB.SR . PO; +NAPROSYN500 MG PO; +NEURONTIN 300300 MG PO
[2018-06-08 12:24] VITALS: Ht 154.9 cm; Wt 104.5 kg
[2018-06-08 12:56] LABS: BASOPHILS 0.3 % (0-2); EOSINOPHILS 2.5 % (0-7); HEMATOCRIT 38.7 % (36.0-48.0); HEMOGLOBIN 13.2 g/dL (12-16); IMMATURE GRANULOCYTES 0.2 % (0-5); LYMPHOCYTES 15.6 % (15-50); MCH 34.6 pg (26.0-34.0); MCHC 34.1 g/dL (31.0-37.0); MCV 101.6 fL (80.0-100.0); MEAN PLATELET VOLUME 10.7 fL (7.4-10.4); MONOCYTES 8.2 % (2-11); NEUTROPHILS 73.2 % (40-80); PLATELET COUNT 312 10x3/uL (130-400); RBC 3.81 10x6/uL (4.00-5.40)
[2018-06-08 13:11] LABS: ALBUMIN 3.1 g/dL (3.4-5.0); ALKALINE PHOSPHATASE 67 U/L (46-116); ALT (SGPT) 34 U/L (10-68); BILIRUBIN - TOTAL 0.32 mg/dL (0.2-1.3); CALC OSMOLALITY 273 mosm/kg (275-300); CALCIUM 8.5 mg/dL (8.5-10.1); CARBON DIOXIDE 25.7 mmol/L (21.0-32.0); CHLORIDE - SERUM 105 mmol/L (98-107); CREATININE - SERUM 0.7 mg/dL (0.6-1.3); GLUCOSE 103 mg/dL (74-106); PROTEIN - SERUM 6.6 g/dL (6.4-8.2); SODIUM 138 mmol/L (136-145); UREA NITROGEN 8 mg/dL (7-18); eGFR NON AFRICAN AMERICAN > 90 mL/min (90-120)
[2018-06-08 13:22] LABS: CKMB 0.6 U/L (0.0-3.6); CREATINE KINASE 58 UL (21-215); TROPONIN-I < 0.017 ng/mL (0.000-0.060)
[2018-06-08 13:23] LABS: HCG SERUM NEGATIVE (NEGATIVE)
[2018-06-08 15:16] LABS: APPEARANCE CLEAR (CLEAR); BILIRUBIN NEGATIVE (NEGATIVE); COLOR YELLOW (YELLOW); GLUCOSE NEGATIVE (NEGATIVE); KETONE NEGATIVE (NEGATIVE); NITRITE NEGATIVE (NEGATIVE); PROTEIN NEGATIVE (NEGATIVE); SPECIFIC GRAVITY 1.015 (1.005-1.020); UROBILINOGEN NORMAL (NORMAL)
[2018-06-08 15:17] LABS: BACTERIA MODERATE /hpf (NONE SEEN); RED CELLS - URINE 0-5 /hpf (0-5); WHITE CELLS - URINE 0-5 /hpf (0-5)
[2018-06-08 17:01] VITALS: BP 134/83
[2018-06-21] MEDS ORDERED: ZOVIRAX400 MG PO (08:56)
== END 2018-06-08 17:02 | disposition home or self-care (01) ==
LOC: D.ER 12:15
PROVIDERS: Family Medicine
DX: S73.191A Other sprain of right hip, initial encounter (principal); W10.9XXA Fall (on) (from) unspecified stairs and steps, initial encounter; Y93.89 Activity, other specified; Y92.019 Unspecified place in single-family (private) house as the place of occurrence of the external cause; S09.90XA Unspecified injury of head, initial encounter; J44.9 Chronic obstructive pulmonary disease, unspecified

== ENCOUNTER 2018-06-23 08:00 | Day surgery (SDC) | payer MEDICARE ==
[2018-06-21 09:37] LABS: HEMATOCRIT 43.5 % (36.0-48.0); MCH 34.4 pg (26.0-34.0); MCHC 34.5 g/dL (31.0-37.0); MCV 99.8 fL (80.0-100.0); MEAN PLATELET VOLUME 10.8 fL (7.4-10.4); RBC 4.36 10x6/uL (4.00-5.40); RDW 13.6 % (11.5-14.5); WBC 12.4 10x3/uL (4.8-10.8)
[~2018-06-23] VITALS: Ht 154.9 cm; Wt 104.3 kg
--- NOTE | ~2018-06-23 | OP ---
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 PROCEDURE: 1. Osteochondral allograft application to the medial femoral condyle greater than 2.5 cm in total. 2. Right knee diagnostic arthroscopy. SURGEON: Alejandra Jacob MD ANESTHESIA: General. INTRAOPERATIVE COMPLICATIONS: None. SUMMARY OF PATHOLOGIC FINDINGS: The patient had a very large OCD lesion consistent with the patient's MRI that had caused chondral flaking as well as pinning upon debridement, it was approximately 2.5 cm in aggregate. IMPLANTS USED: Cartiform osteochondral allograft from [employer] lyophilized cartilage allograft from [employer]. INDICATIONS: Vicente is a 37-year-old female who is bothered by knee pain. MRI showed multiple areas of bony infarcts; however, one placed in deep flexion showed that it communicated with the joint and this was consistent with her symptoms of pain, climbing stairs, pain with deep knee bends and pain after sitting. Her original examination was a positive Vanessa test; however, the MRI did show that this was coming from the condylar defect. OPERATIVE SUMMARY IN DETAIL: After obtaining the appropriate preoperative orthopedic surgery consent as well as anesthetic consultation, evaluation and clearance the patient was brought to the operating room and placed on the operating table in supine position. After adequate general laryngeal mask airway was administered, tourniquet was placed on the proximal aspect of the right lower extremity. Right lower extremity was then prepped and draped in routine sterile fashion. The leg was elevated and exsanguinated, the tourniquet was inflated to 350 mmHg. Routine inferolateral portal was established followed by superomedial portal and inferomedial portal. Diagnostic arthroscopy showed the patient not to have any meniscal pathology. No other areas of osteochondritis dissecans were seen, although the patient has multiple areas of bone infarcts. This was the only area as shown on the MRI did seem to be pathologic or/symptomatic. At this point, arthroscopically resector was utilized to debride gently the osteochondral fragments. Having completed this, a medial arthrotomy was performed. The knee was placed in deep flexion. Care was taken to retract the fat pad and not to violate the anterior aspect of the medial meniscus through the NG small arthrotomy. A combination of curettage was used to clean out and stabilize the entire OCD area. Having completed this, the Cartiform was then cut to fit the osteochondral defect. A 2.6 PushLock was placed in the middle of the defect and 2-0 Vicryl that was threaded onto the OPERATIVE REPORT [id number] VICNETE WHITLOCK PushLock was then used to tie in the osteochondral allograft. The osteochondral allograft seated nicely within the groove and having completed this the PRP that was taken from the patient was used to reconstitute the lyophilized BioCartilage. It was of note that the rest of the PRP that was not used to reconstitute the BioCartilage was used to soak the osteochondral allograft before implantation. Once the Bio graft was reconstituted, it was used to fill in the area in and about the graft as well as the holes of the graft. This was smoothened down to be exactly contiguous with the [place] cartilage and then these were then glued into place using the biologic glue over the BioCartilage cover. This was allowed to dry. After this was allowed to dry, excess was removed. The knee was then placed again in extension while holding valgus pressure as not to disrupt the posterior medial femoral condylar repair. This was gently irrigated. Paramedian arthrotomy was closed with #1 Vicryl followed by 2-0 Vicryl and skin marina. Having completed this, the arthroscopic portals were closed in routine interrupted fashion using 4-0 Prolene. Sterile dressings were applied. Tourniquet was deflated. The patient was placed in a knee immobilizer, awakened and taken to recovery room in stable condition. All final needle and sponge counts were correct. TRANSINT:[id number] Voice Confirmation ID: [id number] DOCUMENT ID: [id number] CECIL TOVAR, ALEJANDRA FUNEZ at 0724 CC: [id number] DICTATION DATE: 06/24/18 0853 CASH RECONCILIATION SPECIALIST: 06/24/18 0932 [facility] 06/23/18 [place] [address]
[~2018-06-23 08:00] MED LIST changes: +ZOVIRAX400 MG PO
[2018-06-23 08:57] VITALS: BP 119/77; Ht 154.9 cm; Wt 104.3 kg
[2018-06-23 09:18] LABS: HCG URINE NEGATIVE (NEGATIVE)
[2018-06-23] MEDS ORDERED: DILAUDID2 MG PO (16:09)
== END 2018-06-23 18:55 | disposition home or self-care (01) ==
LOC: D.OPS 08:00 → D.PAN 14:00 → D.OPS 14:00
PROVIDERS: Anesthesiology; Orthopaedic Surgery
DX: M93.261 Osteochondritis dissecans, right knee (principal); Z01.812 Encounter for preprocedural laboratory examination

== ENCOUNTER 2018-07-11 14:00 | Emergency (ER) | payer MEDICARE ==
[~2018-07-11] VITALS: Ht 154.9 cm; Wt 104.5 kg
[~2018-07-11 14:00] MED LIST changes: +DILAUDID2 MG PO
[2018-07-11 14:07] VITALS: Ht 154.9 cm; Wt 104.5 kg
[2018-07-11] MEDS ORDERED: OXYCODONE-APAP1 TAB PO (15:25)
[2018-07-11 15:55] VITALS: BP 141/79
== END 2018-07-11 15:55 | disposition home or self-care (01) ==
LOC: D.ER 14:00
DX: G89.18 Other acute postprocedural pain (principal); R05 Cough; J44.9 Chronic obstructive pulmonary disease, unspecified

== ENCOUNTER 2018-07-15 16:22 | Emergency (ER) | payer MEDICARE ==
[~2018-07-15] VITALS: Ht 154.9 cm; Wt 100.0 kg
[~2018-07-15 16:22] MED LIST changes: +OXYCODONE-APAP1 TAB PO
[2018-07-15 16:59] VITALS: Ht 154.9 cm; Wt 100.0 kg
[2018-07-15] MEDS ORDERED: PHENERGAN25 M1 (17:01)
[2018-07-15] MEDS ORDERED: DIFLUCAN50 MG (17:01)
[2018-07-15 17:40] LABS: BASOPHILS 0.2 % (0-2); EOSINOPHILS 4.6 % (0-7); HEMATOCRIT 34.2 % (36.0-48.0); HEMOGLOBIN 11.6 g/dL (12-16); IMMATURE GRANULOCYTES 0.4 % (0-5); LYMPHOCYTES 33.9 % (15-50); MCH 33.6 pg (26.0-34.0); MCHC 33.9 g/dL (31.0-37.0); MCV 99.1 fL (80.0-100.0); MEAN PLATELET VOLUME 10.2 fL (7.4-10.4); MONOCYTES 9.1 % (2-11); NEUTROPHILS 51.8 % (40-80); PLATELET COUNT 396 10x3/uL (130-400); RBC 3.45 10x6/uL (4.00-5.40); RDW 14.2 % (11.5-14.5); WBC 8.3 10x3/uL (4.8-10.8)
[2018-07-15] MEDS ORDERED: TYLENOL W/CODEI1 TAB PO (19:07)
[2018-07-15 19:21] VITALS: BP 138/88
[2018-07-15 19:29] LABS: ERYTHROCYTE SEDIMENTATION RATE 45 mm/hr (0-20)
== END 2018-07-15 19:20 | disposition home or self-care (01) ==
LOC: D.ER 16:22
PROVIDERS: Family Medicine
DX: G89.18 Other acute postprocedural pain (principal); R05 Cough; J44.9 Chronic obstructive pulmonary disease, unspecified

== ENCOUNTER 2018-08-05 04:51 | Emergency (ER) | payer MEDICARE ==
[~2018-08-05] VITALS: Ht 154.9 cm; Wt 113.6 kg
[~2018-08-05 04:51] MED LIST changes: +DIFLUCAN50 MG; +PHENERGAN25 M1; +TYLENOL W/CODEI1 TAB PO
[2018-08-05 05:00] VITALS: Ht 154.9 cm; Wt 113.6 kg
[2018-08-05] MEDS ORDERED: NORCO 10-325 TA1 TAB PO (05:19)
[2018-08-05 05:44] VITALS: BP 126/78
== END 2018-08-05 05:45 | disposition home or self-care (01) ==
LOC: D.ER 04:51
DX: M25.561 Pain in right knee (principal); J44.9 Chronic obstructive pulmonary disease, unspecified; F17.200 Nicotine dependence, unspecified, uncomplicated

== ENCOUNTER 2018-09-06 10:33 | Emergency (ER) | payer MEDICARE ==
[~2018-09-06] VITALS: Ht 154.9 cm; Wt 96.8 kg
[~2018-09-06 10:33] MED LIST changes: +NORCO 10-325 TA1 TAB PO
[2018-09-06 10:42] VITALS: Ht 154.9 cm; Wt 96.8 kg
[2018-09-06 11:03] LABS: APPEARANCE CLEAR (CLEAR); BILIRUBIN NEGATIVE (NEGATIVE); COLOR YELLOW (YELLOW); GLUCOSE NEGATIVE (NEGATIVE); KETONE NEGATIVE (NEGATIVE); NITRITE NEGATIVE (NEGATIVE); PROTEIN NEGATIVE (NEGATIVE); UROBILINOGEN NORMAL (NORMAL)
[2018-09-06 11:09] LABS: BASOPHILS 0.3 % (0-2); EOSINOPHILS 1.5 % (0-7); HEMATOCRIT 45.9 % (36.0-48.0); HEMOGLOBIN 15.4 g/dL (12-16); IMMATURE GRANULOCYTES 0.2 % (0-5); LYMPHOCYTES 24.7 % (15-50); MCH 34.1 pg (26.0-34.0); MCHC 33.6 g/dL (31.0-37.0); MCV 101.5 fL (80.0-100.0); MEAN PLATELET VOLUME 11.3 fL (7.4-10.4); MONOCYTES 5.5 % (2-11); NEUTROPHILS 67.8 % (40-80); PLATELET COUNT 375 10x3/uL (130-400); RBC 4.52 10x6/uL (4.00-5.40); RDW 14.5 % (11.5-14.5); WBC 14.5 10x3/uL (4.8-10.8)
[2018-09-06 11:33] LABS: ALBUMIN 3.8 g/dL (3.4-5.0); ALKALINE PHOSPHATASE 82 U/L (46-116); ALT (SGPT) 48 U/L (10-68); AMYLASE - SERUM 55 U/L (25-115); BILIRUBIN - TOTAL 0.73 mg/dL (0.2-1.3); CALC OSMOLALITY 273 mosm/kg (275-300); CALCIUM 9.5 mg/dL (8.5-10.1); CARBON DIOXIDE 20.1 mmol/L (21.0-32.0); CHLORIDE - SERUM 101 mmol/L (98-107); CREATININE - SERUM 0.5 mg/dL (0.6-1.3); GLUCOSE 104 mg/dL (74-106); LIPASE 206 U/L (73-393); PROTEIN - SERUM 7.9 g/dL (6.4-8.2); SODIUM 138 mmol/L (136-145); UREA NITROGEN 7 mg/dL (7-18); eGFR NON AFRICAN AMERICAN > 90 mL/min (90-120)
[2018-09-06 11:34] LABS: POTASSIUM - SERUM 5.1 mmol/L (3.5-5.1)
[2018-09-06 14:16] VITALS: BP 165/92
== END 2018-09-06 13:43 | disposition home or self-care (01) ==
LOC: D.ER 10:33
PROVIDERS: Family Medicine
DX: R10.13 Epigastric pain (principal); R11.0 Nausea; J44.9 Chronic obstructive pulmonary disease, unspecified; F17.200 Nicotine dependence, unspecified, uncomplicated

== ENCOUNTER 2018-09-09 15:18 | Emergency (ER) | payer MEDICARE ==
[~2018-09-09] VITALS: Ht 154.9 cm; Wt 96.8 kg
[2018-09-09 15:24] VITALS: Ht 154.9 cm; Wt 96.8 kg
[2018-09-09] MEDS ORDERED: NEXIUM20 MG PO (17:41)
[2018-09-09] MEDS ORDERED: HYDROCODON-ACE1 EAC7 PO (17:42)
[2018-09-09 18:16] VITALS: BP 121/80
== END 2018-09-09 18:16 | disposition home or self-care (01) ==
LOC: D.ER 15:18
DX: R10.12 Left upper quadrant pain (principal); J44.9 Chronic obstructive pulmonary disease, unspecified; F17.200 Nicotine dependence, unspecified, uncomplicated

== ENCOUNTER 2018-09-10 11:36 | Emergency (ER) | payer MEDICARE | END 2018-09-10 12:46 | disposition home or self-care (01) | LOC: D.ER 11:36 | DX: G89.29 Other chronic pain (principal); J44.9 Chronic obstructive pulmonary disease, unspecified ==

== ENCOUNTER 2018-09-23 13:54 | Emergency (ER) | payer MEDICARE ==
[~2018-09-23] VITALS: Ht 154.9 cm; Wt 96.8 kg
[~2018-09-23 13:54] MED LIST changes: +HYDROCODON-ACE1 EAC7 PO; +NEXIUM20 MG PO
[2018-09-23 14:28] VITALS: Ht 154.9 cm; Wt 96.8 kg
[2018-09-23 15:10] LABS: BASOPHILS 0.2 % (0-2); EOSINOPHILS 1.8 % (0-7); HEMATOCRIT 44.4 % (36.0-48.0); HEMOGLOBIN 15.2 g/dL (12-16); IMMATURE GRANULOCYTES 0.2 % (0-5); LYMPHOCYTES 26.9 % (15-50); MCH 33.9 pg (26.0-34.0); MCHC 34.2 g/dL (31.0-37.0); MCV 99.1 fL (80.0-100.0); MEAN PLATELET VOLUME 11.6 fL (7.4-10.4); MONOCYTES 5.9 % (2-11); PLATELET COUNT 397 10x3/uL (130-400); RBC 4.48 10x6/uL (4.00-5.40); RDW 14.1 % (11.5-14.5); WBC 13.4 10x3/uL (4.8-10.8)
[2018-09-23 15:26] LABS: ALBUMIN 3.9 g/dL (3.4-5.0); ALKALINE PHOSPHATASE 72 U/L (46-116); ALT (SGPT) 48 U/L (10-68); AMYLASE - SERUM 41 U/L (25-115); BILIRUBIN - TOTAL 0.29 mg/dL (0.2-1.3); CALC OSMOLALITY 271 mosm/kg (275-300); CALCIUM 9.4 mg/dL (8.5-10.1); CARBON DIOXIDE 27.1 mmol/L (21.0-32.0); CHLORIDE - SERUM 101 mmol/L (98-107); CREATININE - SERUM 0.5 mg/dL (0.6-1.3); GLUCOSE 104 mg/dL (74-106); LIPASE 121 U/L (73-393); POTASSIUM - SERUM 3.5 mmol/L (3.5-5.1); PROTEIN - SERUM 7.8 g/dL (6.4-8.2); SODIUM 137 mmol/L (136-145); UREA NITROGEN 8 mg/dL (7-18); eGFR NON AFRICAN AMERICAN > 90 mL/min (90-120)
[2018-09-23 15:46] LABS: APPEARANCE CLEAR (CLEAR); BILIRUBIN NEGATIVE (NEGATIVE); COLOR YELLOW (YELLOW); GLUCOSE NEGATIVE (NEGATIVE); KETONE NEGATIVE (NEGATIVE); NITRITE NEGATIVE (NEGATIVE); PROTEIN TRACE mg/dL (NEGATIVE); UROBILINOGEN NORMAL (NORMAL)
[2018-09-23 15:47] LABS: BACTERIA MODERATE /hpf (NONE SEEN); EPITHELIAL CELLS 0-5 /hpf (0-5); MUCUS <1+ /lpf (NONE SEEN); RED CELLS - URINE OCC /hpf (0-5); WHITE CELLS - URINE 0-5 /hpf (0-5)
[2018-09-23 17:35] VITALS: BP 157/70
== END 2018-09-23 17:36 | disposition home or self-care (01) ==
LOC: D.ER 13:54
PROVIDERS: Family Medicine
DX: R10.11 Right upper quadrant pain (principal); R10.13 Epigastric pain; F17.200 Nicotine dependence, unspecified, uncomplicated

== ENCOUNTER 2018-10-03 19:59 | Emergency (ER) | payer MEDICARE ==
[~2018-10-03] VITALS: Ht 154.9 cm; Wt 93.2 kg
[2018-10-03 20:02] VITALS: Ht 154.9 cm; Wt 93.2 kg
[2018-10-03] MEDS ORDERED: NEURONTIN 300300 MG PO (20:06)
[2018-10-03] MEDS ORDERED: RANITIDINE HCL150 M1 (20:06)
[2018-10-03] MEDS ORDERED: OSCIMIN0.125 M1 (20:07)
[2018-10-03 20:56] LABS: APPEARANCE CLEAR (CLEAR); BASOPHILS 0.2 % (0-2); BILIRUBIN NEGATIVE (NEGATIVE); COLOR STRAW (YELLOW); EOSINOPHILS 2.4 % (0-7); GLUCOSE NEGATIVE (NEGATIVE); HEMATOCRIT 44.1 % (36.0-48.0); HEMOGLOBIN 14.8 g/dL (12-16); IMMATURE GRANULOCYTES 0.3 % (0-5); KETONE NEGATIVE (NEGATIVE); LYMPHOCYTES 29.8 % (15-50); MCH 33.6 pg (26.0-34.0); MCHC 33.6 g/dL (31.0-37.0); MEAN PLATELET VOLUME 11.9 fL (7.4-10.4); MONOCYTES 7.6 % (2-11); NEUTROPHILS 59.7 % (40-80); NITRITE NEGATIVE (NEGATIVE); PLATELET COUNT 376 10x3/uL (130-400); PROTEIN NEGATIVE (NEGATIVE); RBC 4.41 10x6/uL (4.00-5.40); RDW 14.1 % (11.5-14.5); SPECIFIC GRAVITY 1.005 (1.005-1.020); UROBILINOGEN NORMAL (NORMAL); WBC 12.7 10x3/uL (4.8-10.8)
[2018-10-03 20:57] LABS: RED CELLS - URINE 0-5 /hpf (0-5); WHITE CELLS - URINE 0-5 /hpf (0-5)
[2018-10-03 20:58] LABS: BACTERIA FEW /hpf (NONE SEEN)
[2018-10-03 21:08] LABS: HCG SERUM NEGATIVE (NEGATIVE)
[2018-10-03 21:10] LABS: ALBUMIN 3.4 g/dL (3.4-5.0); ALKALINE PHOSPHATASE 81 U/L (46-116); ALT (SGPT) 46 U/L (10-68); BILIRUBIN - TOTAL 0.31 mg/dL (0.2-1.3); CALC OSMOLALITY 270 mosm/kg (275-300); CALCIUM 9.3 mg/dL (8.5-10.1); CARBON DIOXIDE 24.2 mmol/L (21.0-32.0); CHLORIDE - SERUM 101 mmol/L (98-107); CREATININE - SERUM 0.8 mg/dL (0.6-1.3); GLUCOSE 112 mg/dL (74-106); LIPASE 163 U/L (73-393); POTASSIUM - SERUM 3.3 mmol/L (3.5-5.1); PROTEIN - SERUM 7.6 g/dL (6.4-8.2); SODIUM 136 mmol/L (136-145); UREA NITROGEN 6 mg/dL (7-18); eGFR NON AFRICAN AMERICAN 85 mL/min (90-120)
[2018-10-03 21:21] LABS: HELICOBACTER PYLORI IGG POSITIVE (NEGATIVE)
[2018-10-03] MEDS ORDERED: PEPTO-BISMOL262 M1 PO (21:34)
[2018-10-03] MEDS ORDERED: FLAGYL250 MG PO (21:34)
[2018-10-03] MEDS ORDERED: HYDROCODON-ACE1 EAC7 PO (21:36)
[2018-10-03 22:03] VITALS: BP 121/50
== END 2018-10-03 22:03 | disposition other institution (70) ==
LOC: D.ER 19:59
PROVIDERS: Emergency Medicine
DX: K29.80 Duodenitis without bleeding (principal); B96.81 Helicobacter pylori [H. pylori] as the cause of diseases classified elsewhere; R11.10 Vomiting, unspecified

== ENCOUNTER 2018-10-08 13:26 | Emergency (ER) | payer MEDICARE ==
[~2018-10-08] VITALS: Ht 154.9 cm; Wt 90.9 kg
[~2018-10-08 13:26] MED LIST changes: +FLAGYL250 MG PO; +OSCIMIN0.125 M1; +PEPTO-BISMOL262 M1 PO; +RANITIDINE HCL150 M1
[2018-10-08 13:32] VITALS: BP 139/85; Ht 154.9 cm; Wt 90.9 kg
[2018-10-08] MEDS ORDERED: PROTONIX40 MG PO (16:24)
== END 2018-10-08 16:39 | disposition home or self-care (01) ==
LOC: D.ER 13:26
DX: R10.9 Unspecified abdominal pain (principal); J44.9 Chronic obstructive pulmonary disease, unspecified; F17.200 Nicotine dependence, unspecified, uncomplicated

== ENCOUNTER 2018-10-22 11:52 | Emergency (ER) | payer MEDICARE ==
[~2018-10-22] VITALS: Ht 154.9 cm; Wt 95.5 kg
[~2018-10-22 11:52] MED LIST changes: +PROTONIX40 MG PO
[2018-10-22 12:06] VITALS: BP 113/86; Ht 154.9 cm; Wt 95.5 kg
[2018-10-22] MEDS ORDERED: ATARAX 25 MG TA25 MG PO (14:44)
[2018-10-22] MEDS ORDERED: PHENERGAN DM SYR5 ML PO (14:46)
[2018-10-22] MEDS ORDERED: MEDROL DOSE PACK4 MG PO (14:46)
== END 2018-10-22 15:24 | disposition home or self-care (01) ==
LOC: D.ER 11:52
DX: J06.9 Acute upper respiratory infection, unspecified (principal); M79.18 Myalgia, other site

== ENCOUNTER 2018-11-10 10:17 | Emergency (ER) | payer MEDICARE ==
[~2018-11-10] VITALS: Ht 154.9 cm; Wt 104.5 kg
[~2018-11-10 10:17] MED LIST changes: +ATARAX 25 MG TA25 MG PO; +MEDROL DOSE PACK4 MG PO; +PHENERGAN DM SYR5 ML PO
[2018-11-10 10:25] VITALS: Ht 154.9 cm; Wt 104.5 kg
[2018-11-10] MEDS ORDERED: PROTONIX40 MG PO (11:59)
[2018-11-10 13:03] VITALS: BP 142/73
== END 2018-11-10 12:51 | disposition home or self-care (01) ==
LOC: D.ER 10:17
DX: Q89.8 Other specified congenital malformations (principal)

== ENCOUNTER 2018-11-11 15:50 | Emergency (ER) | payer MEDICARE ==
[~2018-11-11] VITALS: Ht 154.9 cm; Wt 104.5 kg
[2018-11-11 15:55] VITALS: Ht 154.9 cm; Wt 104.5 kg
[2018-11-11 18:06] VITALS: BP 172/62
== END 2018-11-11 17:50 | disposition home or self-care (01) ==
LOC: D.ER 15:50
DX: M93.261 Osteochondritis dissecans, right knee (principal)

== ENCOUNTER → 2018-11-14 06:34 | Outpatient (CLI) | payer MEDICARE ==
[2018-11-11 15:55] VITALS: BMI 43.5
== END | disposition home or self-care (01) ==
LOC: D.MRI 06:34
DX: M25.561 Pain in right knee (principal)

== ENCOUNTER 2018-12-03 14:44 | Emergency (ER) | payer MEDICARE ==
[~2018-12-03] VITALS: Ht 154.9 cm; Wt 104.5 kg
[2018-12-03 15:15] VITALS: Ht 154.9 cm; Wt 104.5 kg
== END 2018-12-03 16:03 | disposition home or self-care (01) ==
LOC: D.ER 14:44
DX: G89.29 Other chronic pain (principal); M25.562 Pain in left knee; M25.561 Pain in right knee

== ENCOUNTER 2019-01-16 09:13 | Emergency (ER) | payer MEDICARE ==
[~2019-01-16] VITALS: Ht 154.9 cm; Wt 99.1 kg
[2019-01-16 09:32] VITALS: Ht 154.9 cm; Wt 99.1 kg
[2019-01-16] MEDS ORDERED: FAMVIR500 MG (09:38)
[2019-01-16 10:15] LABS: BASOPHILS 0.3 % (0-2); EOSINOPHILS 2.4 % (0-7); HEMATOCRIT 36.3 % (36.0-48.0); HEMOGLOBIN 12.4 g/dL (12-16); IMMATURE GRANULOCYTES 0.3 % (0-5); LYMPHOCYTES 36.4 % (15-50); MCH 33.5 pg (26.0-34.0); MCHC 34.2 g/dL (31.0-37.0); MCV 98.1 fL (80.0-100.0); MEAN PLATELET VOLUME 10.2 fL (7.4-10.4); MONOCYTES 6.6 % (2-11); PLATELET COUNT 380 10x3/uL (130-400); RDW 15.6 % (11.5-14.5); WBC 7.4 10x3/uL (4.8-10.8)
[2019-01-16 10:29] LABS: ALBUMIN 3.3 g/dL (3.4-5.0); ALKALINE PHOSPHATASE 67 U/L (46-116); ALT (SGPT) 41 U/L (10-68); BILIRUBIN - TOTAL 0.41 mg/dL (0.2-1.3); CALC OSMOLALITY 282 mosm/kg (275-300); CALCIUM 8.7 mg/dL (8.5-10.1); CARBON DIOXIDE 24.1 mmol/L (21.0-32.0); CHLORIDE - SERUM 108 mmol/L (98-107); CREATININE - SERUM 0.7 mg/dL (0.6-1.3); GLUCOSE 100 mg/dL (74-106); POTASSIUM - SERUM 3.5 mmol/L (3.5-5.1); PROTEIN - SERUM 6.8 g/dL (6.4-8.2); SODIUM 143 mmol/L (136-145); UREA NITROGEN 6 mg/dL (7-18); eGFR NON AFRICAN AMERICAN > 90 mL/min (90-120)
[2019-01-16 10:32] LABS: AMYLASE - SERUM 31 U/L (25-115); LIPASE 125 U/L (73-393); TROPONIN-I < 0.017 ng/mL (0.000-0.060)
[2019-01-16 10:49] LABS: APPEARANCE CLEAR (CLEAR); BACTERIA MODERATE /hpf (NONE SEEN); BILIRUBIN NEGATIVE (NEGATIVE); COLOR RED (YELLOW); EPITHELIAL CELLS 0-5 /hpf (0-5); GLUCOSE NEGATIVE (NEGATIVE); KETONE NEGATIVE (NEGATIVE); NITRITE NEGATIVE (NEGATIVE); PROTEIN 2+ mg/dL (NEGATIVE); RED CELLS - URINE >50 /hpf (0-5); SPECIFIC GRAVITY 1.005 (1.005-1.020); UROBILINOGEN NORMAL (NORMAL); WHITE CELLS - URINE 0-5 /hpf (0-5)
[2019-01-16 10:50] LABS: HYALINE CAST RARE /lpf (NONE SEEN)
[2019-01-16] MEDS ORDERED: PHENAZOPYRIDIN200 MG PO (13:19)
[2019-01-16] MEDS ORDERED: MACROBID100 MG PO (13:19)
[2019-01-16] MEDS ORDERED: KEFLEX500 MG PO (13:19)
[2019-01-16 14:11] VITALS: BP 116/55
== END 2019-01-16 14:05 | disposition home or self-care (01) ==
LOC: D.ER 09:13
PROVIDERS: Family Medicine
DX: N30.91 Cystitis, unspecified with hematuria (principal)

== ENCOUNTER 2019-03-01 19:00 | Emergency (ER) | payer MEDICARE ==
[~2019-03-01] VITALS: Ht 154.9 cm; Wt 97.3 kg
[~2019-03-01 19:00] MED LIST changes: +FAMVIR500 MG; +KEFLEX500 MG PO; +MACROBID100 MG PO; +PHENAZOPYRIDIN200 MG PO
[2019-03-01 19:05] VITALS: Ht 154.9 cm; Wt 97.3 kg
[2019-03-01] MEDS ORDERED: VRAYLAR3 MG PO (19:06)
[2019-03-01] MEDS ORDERED: KLONOPIN1 MG PO (19:07)
[2019-03-01] MEDS ORDERED: HYDROCODON-ACE1 EAC7 PO (19:30)
[2019-03-01 20:04] VITALS: BP 132/55
== END 2019-03-01 20:04 | disposition home or self-care (01) ==
LOC: D.ER 19:00
DX: G43.809 Other migraine, not intractable, without status migrainosus (principal)

== ENCOUNTER 2019-03-05 11:51 | Emergency (ER) | payer MEDICARE ==
[~2019-03-05 11:51] MED LIST changes: +VRAYLAR3 MG PO
[2019-03-05 12:01] VITALS: BMI 40.5
[2019-03-05] MEDS ORDERED: TALWIN NX1 TAB PO (13:21)
[2019-03-05] MEDS ORDERED: PHENERGAN25 M1 PO (13:21)
[2019-03-05 13:45] VITALS: BP 138/88
== END 2019-03-05 13:45 | disposition home or self-care (01) ==
LOC: D.ER 11:51
DX: G43.909 Migraine, unspecified, not intractable, without status migrainosus (principal); G89.29 Other chronic pain

== ENCOUNTER 2019-04-30 02:42 | Emergency (ER) | payer MEDICARE ==
[~2019-04-30] VITALS: Ht 154.9 cm; Wt 81.8 kg
[~2019-04-30 02:42] MED LIST changes: +PHENERGAN25 M1 PO; +TALWIN NX1 TAB PO
[2019-04-30 02:52] VITALS: Ht 154.9 cm; Wt 81.8 kg
[2019-04-30] MEDS ORDERED: LUNESTA2 M1 PO (02:54)
[2019-04-30] MEDS ORDERED: NEURONTIN600 MG PO (02:55)
[2019-04-30] MEDS ORDERED: PERCOCET 10-321 EAC1 PO (02:55)
[2019-04-30] MEDS ORDERED: B12 INJECTIONS (02:56)
[2019-04-30] MEDS ORDERED: VRAYLAR3 MG PO (02:56)
[2019-04-30] MEDS ORDERED: ARMOUR THYROID90 MG PO (02:56)
[2019-04-30 03:59] VITALS: BP 115/70
== END 2019-04-30 03:58 | disposition home or self-care (01) ==
LOC: D.ER 02:42
DX: G43.909 Migraine, unspecified, not intractable, without status migrainosus (principal); E03.9 Hypothyroidism, unspecified; J44.9 Chronic obstructive pulmonary disease, unspecified

== ENCOUNTER 2019-07-08 21:32 | Emergency (ER) | payer MEDICARE ==
[~2019-07-08] VITALS: Ht 154.9 cm; Wt 104.5 kg
[~2019-07-08 21:32] MED LIST changes: +ARMOUR THYROID90 MG PO; +B12 INJECTIONS; +NEURONTIN600 MG PO; +PERCOCET 10-321 EAC1 PO
[2019-07-08 22:12] VITALS: Ht 154.9 cm; Wt 104.5 kg
[2019-07-08] MEDS ORDERED: VITAMIN D10000 UNI1 PO (22:14)
[2019-07-08] MEDS ORDERED: ALBUTEROL SULF8.5 GM INH (22:15)
[2019-07-09] MEDS ORDERED: HYDROCODON-ACE1 EA10 PO (00:13)
[2019-07-09] MEDS ORDERED: VOLTAREN75 MG PO (00:13)
[2019-07-09 00:25] VITALS: BP 135/75
== END 2019-07-09 00:25 | disposition home or self-care (01) ==
LOC: D.ER 21:32
DX: M25.561 Pain in right knee (principal); J44.9 Chronic obstructive pulmonary disease, unspecified; F17.210 Nicotine dependence, cigarettes, uncomplicated

== ENCOUNTER 2019-08-05 15:55 | Emergency (ER) | payer MEDICARE ==
[~2019-08-05] VITALS: Ht 154.9 cm; Wt 97.7 kg
[~2019-08-05 15:55] MED LIST changes: +ALBUTEROL SULF8.5 GM INH; +HYDROCODON-ACE1 EA10 PO; +VITAMIN D10000 UNI1 PO; +VOLTAREN75 MG PO
[2019-08-05 16:03] VITALS: Ht 154.9 cm; Wt 97.7 kg
[2019-08-05 17:43] VITALS: BP 102/60
== END 2019-08-05 17:44 | disposition home or self-care (01) ==
LOC: D.ER 15:55
DX: M25.561 Pain in right knee (principal); G89.29 Other chronic pain

== ENCOUNTER 2019-10-17 20:19 | Emergency (ER) | payer MEDICARE ==
[~2019-10-17] VITALS: Ht 154.9 cm; Wt 102.3 kg
[2019-10-17 20:45] VITALS: BP 98/59; Ht 154.9 cm; Wt 102.3 kg
[2019-10-17] MEDS ORDERED: VOLTAREN100 GM TOPICAL (20:47)
[2019-10-17] MEDS ORDERED: TAMIFLU75 MG PO (22:27)
[2019-10-17] MEDS ORDERED: ZPAK PO (22:27)
== END 2019-10-17 22:45 | disposition home or self-care (01) ==
LOC: D.ER 20:19
DX: J11.1 Influenza due to unidentified influenza virus with other respiratory manifestations (principal); Z72.0 Tobacco use; E03.9 Hypothyroidism, unspecified; J44.9 Chronic obstructive pulmonary disease, unspecified